=== PATIENT | male | born 1985 | race Caucasian/White ===

== ENCOUNTER 2023-01-09 23:13 | Emergency (ER) | payer SELFPAY ==
[~2023-01-09] VITALS: Ht 177.8 cm; Wt 97.5 kg
[2023-01-09] MEDS ORDERED: LIDOCAINE HCL/MPF 1% 30 ML VIAL IJ ONE (23:28)
[2023-01-09 23:44] VITALS: BP 141/80; TEMP 98.3; O2SAT 100
== END 2023-01-09 23:50 | disposition home or self-care (01) ==
LOC: ER 23:18
DX: L03.012 Cellulitis of left finger (principal)
CPT/HCPCS: 10060; 99282; J3490